=== PATIENT | male | born 1995 | race African-American/Black ===

== ENCOUNTER 2020-06-15 21:49 | Emergency (ER) | payer OTHER, SELFPAY ==
[~2020-06-15] VITALS: Ht 182.9 cm; Wt 68.9 kg
[2020-06-15] MEDS ORDERED: NS 1,000 ML IV ONE (23:00)
[2020-06-15 23:14] LABS: BASO # 0.1 10^3/uL (0.0-0.2); BASO % 0.7 % (0.0-1.0); EOS # 0.2 10^3/uL (0.0-0.5); EOS % 2.6 % (0.0-3.0); HEMATOCRIT 44.8 % (42.0-52.0); HEMOGLOBIN 15.6 g/dl (13.5-17.5); LYMPH # 3.1 10^3/uL (1.5-5.0); LYMPH % 38.1 % (24.0-44.0); MEAN CORPUSCULAR HEMOGLOBIN 30.9 pg (27.0-33.0); MEAN CORPUSCULAR HGB CONC 34.8 g/dl (32.0-36.5); MEAN CORPUSCULAR VOLUME 88.7 fl (80.0-96.0); MONO # 0.8 10^3/uL (0.0-0.8); MONO % 9.2 % (2.0-8.0); NEUTROPHILS % 49.2 % (36.0-66.0); PLATELET COUNT, AUTOMATED 268 10^3/uL (150-450); RED BLOOD COUNT 5.05 10^6/uL (4.30-6.10); WHITE BLOOD COUNT 8.2 10^3/uL (4.0-10.0)
[2020-06-15 23:25] LABS: INR 1.09; PROTHROMBIN TIME 14.3 SECONDS (12.5-14.3)
[2020-06-15 23:47] LABS: D-DIMER QUANT < 270 ng/ml (<500)
[2020-06-15 23:51] LABS: BLOOD UREA NITROGEN 12 MG/DL (7-18); CALCIUM LEVEL 10.3 MG/DL (8.5-10.1); CARBON DIOXIDE LEVEL 26 MEQ/L (21-32); CHLORIDE LEVEL 107 MEQ/L (98-107); CK-MB VALUE MASS 1.7 NG/ML (<3.6); CPK CREATINE PHOSPHOKINASE 263 U/L (39-308); CREATININE FOR GFR 0.84 MG/DL (0.70-1.30); GLOMERULAR FILTRATION RATE > 60.0 (>60); GLUCOSE, FASTING 74 MG/DL (70-100); MB/CK RELATIVE INDEX 0.65 (< OR =4); POTASSIUM SERUM 3.5 MEQ/L (3.5-5.1); SODIUM LEVEL 139 MEQ/L (136-145); TROPONIN I < 0.02 NG/ML (< 0.10)
[2020-06-16] LABS: AMPHETAMINES LEVEL URINE NEGATIVE (NEGATIVE); BARBITURATES URINE NEGATIVE (NEGATIVE); BENZODIAZEPINES URINE NEGATIVE (NEGATIVE); CANNABINOIDS URINE POSITIVE (NEGATIVE); COCAINE METABOLITE URINE NEGATIVE (NEGATIVE); METHADONE URINE NEGATIVE (NEGATIVE); OPIATES URINE NEGATIVE (NEGATIVE); PHENCYCLIDINE URINE NEGATIVE (NEGATIVE)
[2020-06-16] MEDS ORDERED: KETOROLAC 30 MG/ML 1ML VIAL IV ONE (00:05)
--- NOTE | 2020-06-16 00:22 | REPVR ---
PROCEDURE INFORMATION: Exam: XR Chest Exam date and time: 06/15/2020 11:37 PM Age: 24 years old Clinical indication: Chest pain TECHNIQUE: Imaging protocol: XR of the chest. Views: 1 view. COMPARISON: No relevant prior studies available. FINDINGS: Limitations: Costophrenic angles are not fully visualized. Lungs: No acute infiltrate. Pleural spaces: Unremarkable. No pleural effusion. No pneumothorax. Heart/Mediastinum: Unremarkable. No cardiomegaly. Bones/joints: Unremarkable. IMPRESSION: No acute infiltrates. Electronically signed by: Je Hardin On 06/16/2020 00:22:46 AM
[2020-06-16 02:00] VITALS: BP 123/58
[2020-06-16] MEDS ORDERED: KETO10TAB PO (02:05)
--- NOTE | 2020-06-16 17:02 | ECGEPIP ---
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
== END 2020-06-16 02:19 | disposition home or self-care (01) ==
LOC: M ED 21:49
DX: R07.89 Other chest pain (principal); F17.210 Nicotine dependence, cigarettes, uncomplicated; F12.20 Cannabis dependence, uncomplicated
CPT/HCPCS: 71045; 80048; 80307; 82550; 82553; 84443; 85025; 85379; 85610; 85730; 93005; 93041; 94760; 96361; 96374; 99285; J1885

== ENCOUNTER 2020-07-11 16:29 | Emergency (ER) | payer OTHER ==
[~2020-07-11] VITALS: Ht 182.9 cm; Wt 66.4 kg
[~2020-07-11 16:29] MED LIST: KETO10TAB PO
[2020-07-11] MEDS ORDERED: ACETAMINOPHEN 325 MG TAB PO ONE (17:20)
[2020-07-11 19:12] LABS: BASO % 0.4 % (0.0-1.0); EOS % 0.3 % (0.0-3.0); HEMATOCRIT 42.1 % (42.0-52.0); HEMOGLOBIN 14.3 g/dl (13.5-17.5); LYMPH # 1.8 10^3/uL (1.5-5.0); LYMPH % 15.6 % (24.0-44.0); MEAN CORPUSCULAR HEMOGLOBIN 30.8 pg (27.0-33.0); MEAN CORPUSCULAR VOLUME 90.7 fl (80.0-96.0); MONO # 1.6 10^3/uL (0.0-0.8); MONO % 14.1 % (2.0-8.0); NEUTROPHILS # 7.9 10^3/uL (1.5-8.5); NEUTROPHILS % 69.2 % (36.0-66.0); PLATELET COUNT, AUTOMATED 171 10^3/uL (150-450); RED BLOOD COUNT 4.64 10^6/uL (4.30-6.10); WHITE BLOOD COUNT 11.4 10^3/uL (4.0-10.0)
--- NOTE | 2020-07-11 19:37 | REP ---
INDICATION: fever COMPARISON: 06/15/2020 TECHNIQUE: PA and lateral. FINDINGS: The mediastinum and cardiac silhouette are normal. The lung lucero are clear and without acute consolidation, effusion, or pneumothorax. The skeletal structures are intact and normal. IMPRESSION: No acute cardiopulmonary process. <Electronically signed by Jose Martinez > 07/11/20 1931
[2020-07-11 20:21] VITALS: BP 119/70
== END 2020-07-11 20:22 | disposition home or self-care (01) ==
LOC: M ED 16:29
DX: J02.9 Acute pharyngitis, unspecified (principal); E87.6 Hypokalemia; F17.210 Nicotine dependence, cigarettes, uncomplicated